=== PATIENT | female | born 1945 | race Two or more races ===

== ENCOUNTER → 2017-07-08 | Outpatient (CLI) | payer MEDICARE, MEDICAID ==
[~2017-07-08] MED LIST: BARIUM SULFATE 176 GM SUSP.RECON ONE; EZ-HD SUSPENSION(BARIUM SULFATE 340GM) PO ONE
== END | disposition home or self-care (01) ==
LOC: RAD 10:10
PROVIDERS: ATTEND Internal Medicine Cardiovascular Disease
DX: J84.9 Interstitial pulmonary disease, unspecified (principal); I51.7 Cardiomegaly; R13.10 Dysphagia, unspecified
CPT/HCPCS: 71046; 74246

== ENCOUNTER → 2017-07-22 | Outpatient (CLI) | payer MEDICARE, MEDICAID ==
[~2017-07-22] MED LIST changes: -BARIUM SULFATE 176 GM SUSP.RECON ONE; -EZ-HD SUSPENSION(BARIUM SULFATE 340GM) PO ONE; +IOHEXOL-300 100 ML BOTTLE ONE
== END | disposition home or self-care (01) ==
LOC: CT 09:27
PROVIDERS: ATTEND Internal Medicine Cardiovascular Disease
DX: I85.00 Esophageal varices without bleeding (principal); I86.4 Gastric varices; J84.9 Interstitial pulmonary disease, unspecified; K74.60 Unspecified cirrhosis of liver; K76.6 Portal hypertension; Z85.3 Personal history of malignant neoplasm of breast; Z92.21 Personal history of antineoplastic chemotherapy; Z92.3 Personal history of irradiation
CPT/HCPCS: 71270; Q9967

== ENCOUNTER 2018-06-09 13:41 | Inpatient (IN) | payer MEDICARE, MEDICAID ==
[~2018-06-09] VITALS: Ht 165.1 cm; Wt 49.9 kg
[2018-06-09] MEDS ORDERED: SODIUM CHLORIDE 0.9% 1,000 ML IV ONE (14:54)
[2018-06-09 15:36] LABS: BASOPHILS % 0.7 % (0.0-2.0); EOSINOPHILS % 1.7 % (0.0-5.0); HEMATOCRIT. 32.5 % (36.0-48.0); HEMOGLOBIN. 10.9 g/dL (12.0-16.0); LYMPHOCYTES % 13.3 % (20.0-50.0); MEAN CORPUSCULAR HEMOGLOBIN 30.8 pg (28.0-32.0); MEAN CORPUSCULAR VOLUME 92.4 fL (81.0-99.0); MEAN PLATELET VOLUME 7.9 fl (7.4-10.4); NEUTROPHILS % 72.3 % (40.0-76.0); PLATELET 193 x1000/uL (130-400); RED BLOOD CELL COUNT 3.52 mill/uL (4.2-5.4); RED CELL DISTRIBUTION WIDTH 19.9 % (11.6-14.6)
[2018-06-09 15:41] LABS: CHLORIDE 114 mEq/L (98-107)
[2018-06-09 15:46] LABS: ETHANOL BLOOD < 10 mg/dL
[2018-06-09] MEDS ORDERED: LACTULOSE 20G/30ML UDC PO ONE (16:00)
[2018-06-09 18:01] LABS: CLARITY URINE TURBID (CLEAR); COLOR URINE DARK YELLOW (YELLOW); KETONES URINE NEGATIVE (NEGATIVE); LEUKOCYTE ESTERASE URINE TRACE (NEGATIVE); NITRITE URINE NEGATIVE (NEGATIVE); OCCULT BLOOD URINE 3+ (NEGATIVE); PROTEIN URINE 3+ (NEGATIVE)
[2018-06-09] MEDS ORDERED: AZITHROMYCIN 500 MG in DEXT 5% WATER 250 ML IV SCH (21:45)
[2018-06-09] MEDS ORDERED: CEFTRIAXONE 1 G PREMIX 50 ML IV NR (21:45)
[2018-06-09 22:45] VITALS: BP 154/70
[2018-06-10] VITALS: BP 154/70
[2018-06-10] MEDS ORDERED: CEFTRIAXONE 1 G PREMIX 50 ML IV SCH ×2 (00:30→22:00)
[2018-06-10 06:33] LABS: INR 1.2; PROTHROMBIN TIME 12.1 sec (9.1-11.1)
[2018-06-10 06:37] LABS: BASOPHILS % 0.4 % (0.0-2.0); HEMOGLOBIN. 9.9 g/dL (12.0-16.0); LYMPHOCYTES % 14.5 % (20.0-50.0); MEAN CORPUSCULAR HEMOGLOBIN 30.6 pg (28.0-32.0); MEAN CORPUSCULAR VOLUME 92.2 fL (81.0-99.0); MONOCYTES % 11.7 % (2.0-8.0); NEUTROPHILS % 70.4 % (40.0-76.0); PLATELET 176 x1000/uL (130-400); RED BLOOD CELL COUNT 3.25 mill/uL (4.2-5.4); RED CELL DISTRIBUTION WIDTH 19.5 % (11.6-14.6)
[2018-06-10] MEDS: LACTULOSE 20G/30ML UDC PO SCH ×3 (06:41→22:31)
[2018-06-10 07:23] LABS: CHLORIDE 116 mEq/L (98-107)
[2018-06-10 08:00] VITALS: BP_SYST 136
[2018-06-10] MEDS ORDERED: ONDANSETRON HCL 4MG/2ML INJ IV PRN (08:45)
[2018-06-10] MEDS ORDERED: POTASSIUM CHLORIDE 20MEQ/PACKET PO SCH (08:45)
[2018-06-10] MEDS ORDERED: IPRATROPIUM/ALBUTEROL 0.5-3(2.5)MG/3ML NEB INH PRN (08:45)
[2018-06-10] MEDS ORDERED: CLONIDINE 0.1MG TABLET PO PRN (08:45)
[2018-06-10] MEDS ORDERED: MAGNESIUM/ALUMINUM HYDROXIDE/SIMETHICONE 30ML UDC PO PRN (08:45)
[2018-06-10] MEDS ORDERED: DOCUSATE SODIUM 100MG CAPSULE PO PRN (08:45)
[2018-06-10] MEDS: PANTOPRAZOLE SODIUM 40 MG/VIAL IV SCH (09:13)
[2018-06-10] MEDS ORDERED: KCL 20MEQ/100ML PREMIX 100 ML IV SCH (10:00)
[2018-06-10 12:00] VITALS: BP 139/78
[2018-06-10 15:31] VITALS: BP 133/72
[2018-06-10 20:00] VITALS: BP 142/77
[2018-06-10] MEDS: AZITHROMYCIN 500 MG in DEXT 5% WATER 250 ML IV SCH (20:48)
[2018-06-10] MEDS: GUAIFENESIN 600MG ER TABLET PO SCH (20:48)
[2018-06-10] MEDS: IPRATROPIUM/ALBUTEROL 0.5-3(2.5)MG/3ML NEB INH SCH (21:13)
[2018-06-10] MEDS: CEFTRIAXONE 1,000 MG in DEXTROSE 5% WATER 50 ML IV SCH (22:31)
[2018-06-11] VITALS (7 sets, daily range): BP systolic 120–138; BP diastolic 70–79
[2018-06-11] MEDS: IPRATROPIUM/ALBUTEROL 0.5-3(2.5)MG/3ML NEB INH SCH ×4 (02:10→21:23)
[2018-06-11] MEDS: LACTULOSE 20G/30ML UDC PO SCH ×3 (05:37→22:29)
[2018-06-11 06:43] LABS: BASOPHILS % 0.4 % (0.0-2.0); EOSINOPHILS % 2.8 % (0.0-5.0); HEMATOCRIT. 28.5 % (36.0-48.0); HEMOGLOBIN. 9.4 g/dL (12.0-16.0); LYMPHOCYTES % 16.4 % (20.0-50.0); MEAN CORPUSCULAR VOLUME 93.8 fL (81.0-99.0); MEAN PLATELET VOLUME 8.1 fl (7.4-10.4); MONOCYTES % 10.9 % (2.0-8.0); NEUTROPHILS % 69.5 % (40.0-76.0); PLATELET 156 x1000/uL (130-400); RED BLOOD CELL COUNT 3.03 mill/uL (4.2-5.4); RED CELL DISTRIBUTION WIDTH 19.7 % (11.6-14.6)
[2018-06-11 08:21] LABS: CHLORIDE 117 mEq/L (98-107)
[2018-06-11] MEDS: GUAIFENESIN 600MG ER TABLET PO SCH ×2 (08:28→21:01)
[2018-06-11] MEDS: PANTOPRAZOLE SODIUM 40 MG/VIAL IV SCH (08:28)
[2018-06-11 08:29] LABS: PHOSPHORUS 3.7 mg/dL (2.5-4.9)
[2018-06-11 18:12] LABS: HEPATITIS B SURFACE ANTIGEN NEGATIVE
[2018-06-11 18:42] LABS: HEPATITIS A AB IGM NEGATIVE (NEGATIVE)
[2018-06-11] MEDS: RIFAXIMIN 550 MG TABLET PO SCH (21:01)
[2018-06-11] MEDS: AZITHROMYCIN 500 MG in DEXT 5% WATER 250 ML IV SCH (21:01)
[2018-06-11] MEDS: CEFTRIAXONE 1,000 MG in DEXTROSE 5% WATER 50 ML IV SCH (22:29)
[2018-06-12 00:05] VITALS: BP 130/75
[2018-06-12] MEDS: IPRATROPIUM/ALBUTEROL 0.5-3(2.5)MG/3ML NEB INH SCH ×6 (00:52→14:10)
[2018-06-12 04:00] VITALS: BP 128/69
[2018-06-12 05:34] LABS: BASOPHILS % 0.4 % (0.0-2.0); EOSINOPHILS % 4.2 % (0.0-5.0); HEMATOCRIT. 29.7 % (36.0-48.0); HEMOGLOBIN. 9.8 g/dL (12.0-16.0); LYMPHOCYTES % 9.3 % (20.0-50.0); MEAN CORPUSCULAR HEMOGLOBIN 30.8 pg (28.0-32.0); MEAN CORPUSCULAR VOLUME 93.3 fL (81.0-99.0); MEAN PLATELET VOLUME 8.1 fl (7.4-10.4); NEUTROPHILS % 76.1 % (40.0-76.0); PLATELET 150 x1000/uL (130-400); RED BLOOD CELL COUNT 3.18 mill/uL (4.2-5.4)
[2018-06-12] MEDS: LACTULOSE 20G/30ML UDC PO SCH ×3 (05:44→22:40)
[2018-06-12 05:54] LABS: CHLORIDE 114 mEq/L (98-107)
[2018-06-12 08:19] VITALS: BP 134/78
[2018-06-12] MEDS: RIFAXIMIN 550 MG TABLET PO SCH ×2 (10:20→20:36)
[2018-06-12] MEDS: GUAIFENESIN 600MG ER TABLET PO SCH ×2 (10:20→20:36)
[2018-06-12] MEDS: FAMOTIDINE 20MG/2ML VIAL IV SCH (10:20)
[2018-06-12 12:00] VITALS: BP 127/69
[2018-06-12 16:00] VITALS: BP 139/81
[2018-06-12 20:00] VITALS: BP 126/62
[2018-06-12] MEDS: AZITHROMYCIN 500 MG in DEXT 5% WATER 250 ML IV SCH (20:36)
[2018-06-12] MEDS: CEFTRIAXONE 1,000 MG in DEXTROSE 5% WATER 50 ML IV SCH (22:39)
[2018-06-13 00:05] VITALS: BP 127/70
[2018-06-13 04:00] VITALS: BP 123/69
[2018-06-13] MEDS: LACTULOSE 20G/30ML UDC PO SCH ×3 (05:28→22:28)
[2018-06-13 06:20] LABS: BASOPHILS % 0.5 % (0.0-2.0); HEMATOCRIT. 27.1 % (36.0-48.0); LYMPHOCYTES % 12.7 % (20.0-50.0); MEAN CORPUSCULAR HEMOGLOBIN 30.9 pg (28.0-32.0); MEAN CORPUSCULAR VOLUME 92.9 fL (81.0-99.0); MEAN PLATELET VOLUME 8.3 fl (7.4-10.4); NEUTROPHILS % 69.8 % (40.0-76.0); PLATELET 129 x1000/uL (130-400); RED BLOOD CELL COUNT 2.92 mill/uL (4.2-5.4); RED CELL DISTRIBUTION WIDTH 19.6 % (11.6-14.6)
[2018-06-13 06:29] LABS: CHLORIDE 113 mEq/L (98-107)
[2018-06-13 08:00] VITALS: BP 129/68
[2018-06-13] MEDS: IPRATROPIUM/ALBUTEROL 0.5-3(2.5)MG/3ML NEB INH SCH ×3 (09:33→21:31)
[2018-06-13] MEDS: GUAIFENESIN 600MG ER TABLET PO SCH ×2 (11:12→22:30)
[2018-06-13] MEDS: FAMOTIDINE 20MG/2ML VIAL IV SCH (11:12)
[2018-06-13] MEDS: RIFAXIMIN 550 MG TABLET PO SCH ×2 (11:12→22:28)
[2018-06-13 12:00] VITALS: BP 132/69
[2018-06-13 16:00] VITALS: BP 159/74
[2018-06-13 20:51] VITALS: BP 148/78
[2018-06-13] MEDS: CEFTRIAXONE 1,000 MG in DEXTROSE 5% WATER 50 ML IV SCH (22:28)
[2018-06-13] MEDS: AZITHROMYCIN 500 MG in DEXT 5% WATER 250 ML IV SCH (22:28)
[2018-06-14] VITALS (7 sets, daily range): BP systolic 102–133; BP diastolic 54–71
[2018-06-14] MEDS: IPRATROPIUM/ALBUTEROL 0.5-3(2.5)MG/3ML NEB INH SCH ×4 (01:03→20:34)
[2018-06-14] MEDS: LACTULOSE 20G/30ML UDC PO SCH ×2 (05:13→14:00)
[2018-06-14 05:49] LABS: BASOPHILS % 0.3 % (0.0-2.0); EOSINOPHILS % 3.9 % (0.0-5.0); HEMATOCRIT. 27.1 % (36.0-48.0); LYMPHOCYTES % 10.5 % (20.0-50.0); MEAN CORPUSCULAR HEMOGLOBIN 30.9 pg (28.0-32.0); MEAN PLATELET VOLUME 8.5 fl (7.4-10.4); MONOCYTES % 11.2 % (2.0-8.0); NEUTROPHILS % 74.1 % (40.0-76.0); PLATELET 136 x1000/uL (130-400); RED BLOOD CELL COUNT 2.92 mill/uL (4.2-5.4); RED CELL DISTRIBUTION WIDTH 19.5 % (11.6-14.6)
[2018-06-14] MEDS: RIFAXIMIN 550 MG TABLET PO SCH (08:21)
[2018-06-14] MEDS: GUAIFENESIN 600MG ER TABLET PO SCH ×2 (08:21→21:11)
[2018-06-14] MEDS: FAMOTIDINE 20MG/2ML VIAL IV SCH (08:21)
[2018-06-14] MEDS ORDERED: ACETAMINOPHEN 325MG TABLET PO PRN (08:45)
[2018-06-14] MEDS: AZITHROMYCIN 500 MG in DEXT 5% WATER 250 ML IV SCH (21:00)
== END 2018-06-14 21:25 | disposition home health service (06) | DRG 871 ==
LOC: ER 14:30 → 7WST 16:17 → EDBEDREQ 16:21 → ENRESERV 21:42
PROVIDERS: ADMIT Family Medicine Adult Medicine; ATTEND Family Medicine Adult Medicine
DX: A41.9 Sepsis, unspecified organism (principal); J18.9 Pneumonia, unspecified organism; J96.20 Acute and chronic respiratory failure, unspecified whether with hypoxia or hypercapnia; E43 Unspecified severe protein-calorie malnutrition; N39.0 Urinary tract infection, site not specified; J90 Pleural effusion, not elsewhere classified; Z68.1 Body mass index [BMI] 19.9 or less, adult; R62.7 Adult failure to thrive; K70.40 Alcoholic hepatic failure without coma; E87.6 Hypokalemia; G40.909 Epilepsy, unspecified, not intractable, without status epilepticus; F41.9 Anxiety disorder, unspecified; F32.9 Major depressive disorder, single episode, unspecified; D64.9 Anemia, unspecified; R13.10 Dysphagia, unspecified; F10.20 Alcohol dependence, uncomplicated; K59.00 Constipation, unspecified; R26.9 Unspecified abnormalities of gait and mobility; K70.31 Alcoholic cirrhosis of liver with ascites; Z85.3 Personal history of malignant neoplasm of breast; Z99.81 Dependence on supplemental oxygen
CPT/HCPCS: 36415; 71045; 76700; 76857; 80048; 80076; 80307; 80320; 80329; 82105; 82140; 83735; 84100; 86705; 86709; 86803; 87340; 92610; 93005; 93970; 94640; 96365; 97116; 97162; 97166; 97535; 99291; C9113; J0456; J0696; J3480; J3490; J7030; J7050; J7060; J7620; G0480